=== PATIENT | male | born 1980 | race African-American/Black ===

== ENCOUNTER 2020-07-12 15:07 | Outpatient (REF) | payer MEDICAID, SELFPAY | END 2020-07-12 15:08 | disposition home or self-care (01) | LOC: HO.LAB 15:07 | PROVIDERS: Visit Provider Internal Medicine | DX: Z20.822 Contact with and (suspected) exposure to COVID-19 (principal) | CPT/HCPCS: 36415; C9803; U0003; U0005 ==

== ENCOUNTER 2022-06-11 09:42 | Emergency (ER) | payer MEDICAID, SELFPAY ==
[2022-06-11 10:15] VITALS: BP 135/74; PULSE 63; RESP 18; TEMP 37.2; O2SAT 99; BMI 25.0
[2022-06-11 10:48] LABS: Appearance Urine Clear; Color Urine Yellow; Glucose Urine UA Negative (Negative); Leukocyte Esterase Urine Trace (Negative); Nitrite Urine Negative (Negative); PH 6.5 (5.0-9.0); Specific Gravity - Urine 1.025 (1.005-1.025); UMIC TRIGGER UACC YES; Urine Blood Negative (Negative); Urine Ketones Trace mg/dL (Negative); Urine Protein Trace mg/dL (Neg-Trace)
[2022-06-11 10:53] LABS: Bacteria Urine None Seen (None Seen); Hyaline Casts Urine 0-2 /LPF (0-2); RBC Urine 0-2 /HPF (0-2); Squamous Epithelial Cell Urine 0-2 /HPF (0-2); UACC Culture Trigger YES
[2022-06-11 12:20] LABS: CT PCR DETECTED (Not Detect.)
[2022-06-11 12:21] LABS: NG PCR NOT DETECTED (Not Detect.)
[2022-06-11 12:40] VITALS: BP 154/96; PULSE 63; RESP 16; O2SAT 99
--- NOTE | 2022-06-11 12:44 | ED.MALEGU ---
HPI - Male Genitourinary General Chief complaint: Urogenital-Male Stated complaint: STD testing Time Seen by Provider: 06/11/22 12:40 Source: patient Mode of arrival: ambulatory Limitations: no limitations History of Present Illness HPI Narrative: Patient is a 41-year-old male who presents to the emergency department for STI testing. He reports penile itching during urination. Denies burning sensation, pain. Denies any penile discharge or lesions. Declines to have genitourinary examination today. He denies fevers, chills. He does endorse recent sexual contact, no reported exposure. Denies any scrotal pain or swelling. Related Data Previous Rx's Medication Instructions Recorded doxycycline hyclate 100 mg capsule 100 mg PO BID #14 caps 06/11/22 Allergies Allergy/AdvReac Type Severity Reaction Status Date / Time No Known Allergies Allergy Unverified 02/24/20 18:12 Review of Systems Review of Systems: Genitourinary: As noted in HPI Yes all other systems are reviewed and are negative [facility] Past Medical History Attestation statement: The following information was validated with the patient. Source: old records reviewed Social History Social History Advance Directives: No Advance Directives Information Provided: No Physical Exam Vital Signs: Vital Signs: Last Vital Signs Temp 98.9 F 06/11/22 10:15 Pulse 63 06/11/22 12:40 Resp 16 06/11/22 12:40 BP 154/96 H 06/11/22 12:40 Pulse Ox 99 06/11/22 12:40 O2 Del Method 06/11/22 12:40 BMI result Body Mass Index 25.0 Appearance: Alert.?Oriented to person, place and time. No acute distress.?Normal affect. Neck: Normal inspection.? Neck supple.?? CVS: Heart sounds normal. Normal heart rate and rhythm.? Pulses normal.?? Respiratory: No respiratory distress.? Lung sounds clear to auscultation bilaterally?? Abdomen: Soft and non-tender. Skin: Skin warm and dry.? Normal skin color.? ? Neuro: Moves all extremities spontaneously. Sensation intact bilaterally. No focal neuro deficits. Ambulates with normal steady gait. Medications Administered Discontinued Medications Generic Name Dose Route Start Last Admin Trade Name Freq PRN Reason Stop Dose Admin Ceftriaxone Sodium 500 mg/ 0 mg 06/11/22 12:45 06/11/22 13:13 Lidocaine HCl 1 ml IM 06/11/22 12:46 1 kit ONCE ONE Administration Medical Decision Making Medical Decision Making [facility] Narrative: Patient is a 41-year-old male with no reported past medical history presenting to the emergency department for evaluation of penile itching during urination. Review of labs obtained from triage, urinalysis without evidence of urinary tract infection. Chlamydia testing today is positive. Patient made aware of these results. Received ceftriaxone IM injection in the emergency department, and prescription for doxycycline was sent to patient's pharmacy. Patient declines to have genitourinary physical examination at the time of this visit. We discussed the possibility of other sexually transmitted infections, potential for lesions that may be associated with things such as genital herpes or syphilis. He adamantly declines any presence of lesions or wounds. Advised that he may follow-up with his primary care provider for any persistent symptoms, and may return to emergency department with any new or worsening symptoms or concerns. All questions answered. He is stable for discharge. Differential Diagnosis Differential Diagnoses: The differential diagnosis associated with the presentation includes (UTI, chlamydia, gonorrhea, HSV, syphilis) Lab Data [facility] Lab Attestation statement: I reviewed the patient's lab results. Labs: Lab Results 06/11/22 06/11/22 Range/Units 10:40 10:40 Urine Color Yellow Urine Appearance Clear Urine pH 6.5 (5.0-9.0) Ur Specific [place] 1.025 (1.005-1.025) Urine Protein Trace (Neg-Trace) mg/dL Urine Glucose (UA) Negative (Negative) mg/dL Urine Ketones Trace (Negative) mg/dL Urine Blood Negative (Negative) Urine Nitrite Negative (Negative) Ur Leukocyte Esterase Trace H (Negative) Urine RBC 0-2 (0-2) /HPF Urine WBC 11-20 H (0-5) /HPF Ur Squamous Epith Cells 0-2 (0-2) /HPF Urine Bacteria None Seen (None Seen) Hyaline Casts 0-2 (0-2) /LPF Chlam trachomat DNA PCR DETECTED A (Not Detect.) N.gonorrhoeae DNA (PCR) NOT DETECTED (Not Detect.) Prescription Management I considered prescription management with: Antibiotic (Prescription for doxycycline sent to patient's pharmacy) Discharge Plan Discharge Clinical Impression: Chlamydia Patient Disposition: Home, Self-Care Instructions: Chlamydia (ED), Safe Sex Practices (ED) Additional Instructions: You should refrain from any sexual intercourse for the next week. A prescription for doxycycline was sent to your pharmacy, please complete this entire course. Any sexual partners you have had in the last 3 months should be made aware of your positive testing for chlamydia, so that they may also be tested and treated appropriately if necessary. This is to help reduce the spread of chlamydia. Follow-up with your primary care provider as needed. Return to emergency department any new or worsening symptoms or concerns. Prescriptions: New doxycycline hyclate 100 mg capsule 100 mg PO BID Qty: 14 0RF Referrals: Physician,None [Primary Care Provider] - Interventions: ED Discharge Assessment Last Done: 06/11/22 13:15 Discharge Date/Time: 06/11/22 13:16
[2022-06-11] MEDS: cefTRIAXone sodium 500 MG, Lidocaine HCl 1 % MPF 1 ML IM (13:13)
--- NOTE | 2022-06-11 13:15 | PC.NURSE ---
pt a&ox3, denied pain at this time, medicated per order, pt discharged after medication given
== END 2022-06-11 13:16 | disposition home or self-care (01) ==
PROVIDERS: Emergency Provider Emergency Medicine
DX: A56.8 Sexually transmitted chlamydial infection of other sites (principal)
CPT/HCPCS: 81001; 87086; 87491; 87591; 96372; 99283; 99284; J0696

== ENCOUNTER 2022-07-02 09:31 | Emergency (ER) | payer OTHER, SELFPAY ==
[2022-07-02 09:41] VITALS: BP 153/97; PULSE 66; RESP 18; TEMP 36.6; O2SAT 100; BMI 25.8
--- NOTE | 2022-07-02 10:22 | MHC.EDTECH ---
labs drawn. urine collected, sent to lab.
[2022-07-02 10:28] LABS: MANUAL DIFF FLAG NO
[2022-07-02 10:29] LABS: Basophils Percent Auto 0.5 % (0-2); Eosinophils Absolute Auto 0.1 X10*3/uL (0.0-0.4); Hematocrit 42.7 % (42.0-52.0); Hemoglobin 13.6 g/dl (14.0-18.0); Imm Gran Abs Auto 0.03 X10*3/uL (0.00-0.03); Imm Gran Pct Auto 0.3 % (0.0-0.4); Lymphocytes Absolute Auto 1.6 X10*3/uL (1.2-4.9); Lymphocytes Percent Auto 18.1 % (20-40); Mean Corpuscular HGB Conc 31.9 g/dl (31.0-36.0); Mean Platelet Volume 10.3 fL (9.4-12.4); Monocytes Absolute Auto 0.8 X10*3/uL (0.1-1.2); Monocytes Percent Auto 8.9 % (2-11); Neutrophils Absolute Auto 6.3 x10*3/uL (2.0-8.3); Neutrophils Percent Auto 71.2 % (45-73); Platelet Count 257 X10*3/uL (160-400); Red Blood Count 4.85 X10*6/uL (4.60-5.80); Red Cell Distribution Width 13.3 % (11.0-16.0); White Blood Count 8.8 X10*3/uL (4.8-10.8)
[2022-07-02 10:34] LABS: Appearance Urine Clear; Color Urine Yellow; Glucose Urine UA Negative (Negative); Leukocyte Esterase Urine Negative (Negative); Nitrite Urine Negative (Negative); Urine Blood Negative (Negative); Urine Ketones Trace mg/dL (Negative); Urine Protein Negative (Neg-Trace)
--- NOTE | 2022-07-02 10:49 | ED.MALEGU ---
HPI - Male Genitourinary General Chief complaint: Urogenital-Male Stated complaint: STD test Time Seen by Provider: 07/02/22 09:47 Source: patient Mode of arrival: ambulatory Limitations: no limitations History of Present Illness HPI Narrative: 41-year-old male who is Albanian-speaking presenting to the ER with complaints of a possible chlamydia infection. patient reports that he was seen here on 06/11/2022 and treated for gonorrhea with doxycycline b.i.d. for 7 days. Although reports his symptoms improve although never completely resolved. He reports that his girlfriend is currently 5 months although he has not had any intercourse with her in 5 months. He reports that a month ago he went to [place] and slept with another female and then he came back here and had the symptoms and was seen here and was treated for chlamydia. Reports that he did not have any intercourse with a female that he believes he sustained a chlamydia from. He did not have any intercourse with his girlfriend who is until 5 days after he completed the treatment for chlamydia. Although he reports that he believes he is still infected with chlamydia. He denies any fevers, chills, chest pain or shortness of breath, Nausea/vomiting, abdominal pain, flank pain, back pain, rashes, penile lesions or discharge, scrotal pain or swelling, diarrhea constipation or any other symptoms complaints or concerns at this time. Complaint: possible STD exposure Onset (ago): day(s) ( today) Duration: constant Quality: burning Relieving factors: none Exacerbating factors: urination Context: new sexual partner and known STD exposure Associated symptoms: Reports denies other symptoms Related Data Sexually active: Yes Previous Rx's Medication Instructions Recorded doxycycline hyclate 100 mg capsule 100 mg PO BID #14 caps 06/11/22 doxycycline monohydrate 100 mg 100 mg PO BID 10 days #20 tabs 07/02/22 tablet Allergies Allergy/AdvReac Type Severity Reaction Status Date / Time No Known Allergies Allergy Verified 07/02/22 09:43 Review of Systems Review of Systems: Constitutional : No Weight loss, No Fever, No Chills, No Night Sweats, No Fatigue, NoMalaise ENT/Mouth: No ear pain, No sore throat, No Difficulty swallowing Cardiovascular : No Chest Pain, No SOB, No Dyspnea on Exertion, No Orthopnea, NoEdema, No Palpitations Respiratory : No Cough, No Sputum, No Wheezing, No Dyspnea Gastrointestinal : No Nausea, No Vomiting, No Diarrhea, No abdominal Pain, No Hematochezia, No Melena Genitourinary : No testicular pain, No irregular bleeding, + Dysuria, No Urinary Frequency, No Hematuria,No Urinary Incontinence, No Urgency, No Flank Pain Musculoskeletal : No joint pain, No Myalgias, No Joint Swelling Skin : No Skin Lesions, No rash Neuro : No Weakness, No Numbness, No Paresthesias, No Loss of Consciousness, NoDizziness, No Headache Psych : No Social Issues, Heme/Lymph: No Bruising, No Bleeding,No Lymphadenopathy Endocrine : No Polyuria, No Polydipsia, No Temperature Intolerance PATIENT DENIES ANY THOUGHTS OF STDS Yes all other systems are reviewed and are negative [facility] Past Medical History Attestation statement: The following information was validated with the patient. Source: old records reviewed and nursing notes reviewed Social History Social History Advance Directives: No Advance Directives Information Provided: No Physical Exam Vital Signs: Vital Signs: Last Vital Signs Temp 97.9 F 07/02/22 09:41 Pulse 66 07/02/22 09:41 Resp 18 07/02/22 09:41 BP 153/97 H 07/02/22 09:41 Pulse Ox 100 07/02/22 09:41 O2 Del Method 07/02/22 09:41 BMI result Body Mass Index 25.8 vital signs have been reviewed as normal and appeared to be correct. Blood pressure normal. Heart rate normal. Respiration rate normal. Temperature normal. Oxygen saturation normal. Appearance: Alert. Oriented X3. No acute distress. Head: Normal external exam. Normocephalic. Atraumatic. Eyes: PERRLA. EOMI. Conjunctiva and sclera normal. Eyelids normal. ENT: Pharynx normal. Uvula midline. Moist mucous membranes. Neck: Normal inspection. Neck supple. FROM. No adenopathy. No meningeal signs. CVS: Normal heart rate and rhythm. Heart sound normal. No murmurs noted. Pulses normal throughout. Respiratory: No respiratory distress. Painless inspiration. Breath sounds normal. No wheezes/rales/rhonchi noted. Chest nontender. No accessory muscle usage noted or decreased air movement noted. Abdomen: Soft and nontender. Bowel sounds normal in all 4 quadrants. No distention noted. No organomegaly noted. No visible injury noted. Back: No CVA tenderness. Full range of motion noted. Skin: Skin warm and dry. Normal skin color. Normal skin turgor. No rashes/lesions/lacerations noted. Extremities: Extremities exhibit normal range of motion. Extremities nontender. Neuro: Oriented X 3. No motor deficit. No sensory deficit. Reflexes normal. Course Course Course Narrative: patient concerned for STD. On exam he does not have any abdominal tenderness, flank pain or CVA tenderness. He denies any penile discharge, scrotal pain or swelling or lesions or rashes to the penis or rectal area therefore exam deferred. I obtain labs in all his labs were normal. UA revealed ketones otherwise no evidence of UTI. Patient pending for syphilis, gonorrhea chlamydia. Patient requesting repeat treatment for chlamydia. I explained to him that I can give him the antibiotics although if he is positive he will have to have his significant other treated as well she will have to come in for further evaluation treatment. I explained to him we will call him in 3-5 days if he has any positive results and to return if any new or worsening symptoms and follow-up with primary care provider. Patient understands agrees with this plan. Medical Decision Making Lab Data [facility] Lab Attestation statement: I reviewed the patient's lab results. 07/02/22 10:19 07/02/22 10:19 Labs: Lab Results 07/02/22 07/02/22 07/02/22 Range/Units 10:19 10:19 10:19 WBC 8.8 (4.8-10.8) X10*3/uL RBC 4.85 (4.60-5.80) X10*6/uL Hgb 13.6 L (14.0-18.0) g/dl Hct 42.7 (42.0-52.0) % MCV 88.0 (80.0-98.0) fL MCH 28.0 (27.0-33.0) pg MCHC 31.9 (31.0-36.0) g/dl RDW 13.3 (11.0-16.0) % Plt Count 257 (160-400) X10*3/uL MPV 10.3 (9.4-12.4) fL Immature Gran % (Auto) 0.3 (0.0-0.4) % Neut % (Auto) 71.2 (45-73) % Lymph % (Auto) 18.1 L (20-40) % [place] % (Auto) 8.9 (2-11) % Eos % (Auto) 1.0 (0-4) % Baso % (Auto) 0.5 (0-2) % Lymph # (Auto) 1.6 (1.2-4.9) X10*3/uL [place] # (Auto) 0.8 (0.1-1.2) X10*3/uL Eos # (Auto) 0.1 (0.0-0.4) X10*3/uL Baso # (Auto) 0.0 (0.0-0.2) X10*3/uL Abs Immat Gran (auto) 0.03 (0.00-0.03) X10*3/uL Absolute Neuts (auto) 6.3 (2.0-8.3) x10*3/uL Absolute Nucleated RBC 0.000 (0.0-0.012) X10*3/uL Nucleated RBC % (auto) 0.0 (0.0-0.2) /100WBC Sodium 137 (135-145) mmol/L Potassium 4.4 (3.3-5.1) mmol/L Chloride 103 (96-108) mmol/L Carbon Dioxide 25 (22-29) mmol/L Anion Gap 13 (12-20) BUN 13 (9-16) mg/dL Creatinine 1.27 (0.5-1.4) mg/dL Estim Creat Clear Calc 73.0 Estimated GFR > 60 Random Glucose 98 (60-115) mg/dL Calcium 9.8 (8.4-10.2) mg/dL Magnesium 1.9 (1.6-2.6) mg/dL Total Bilirubin 0.5 (0.0-1.0) mg/dL AST 29 (5-37) U/L ALT 40 (0-40) U/L Alkaline Phosphatase 85 (39-117) U/L Total Protein 7.7 (6.5-8.0) g/dL Albumin 4.8 (3.5-5.0) g/dL Urine Color Yellow Urine Appearance Clear Urine pH 7.0 (5.0-9.0) Ur Specific [place] 1.020 (1.005-1.025) Urine Protein Negative (Neg-Trace) mg/dL Urine Glucose (UA) Negative (Negative) mg/dL Urine Ketones Trace (Negative) mg/dL Urine Blood Negative (Negative) Urine Nitrite Negative (Negative) Ur Leukocyte Esterase Negative (Negative) Discharge Plan Discharge Clinical Impression: Screen for STD (sexually transmitted disease) Patient Disposition: Home, Self-Care Instructions: Sexually Transmitted Diseases (ED) Additional Instructions: You have pending lab results if any are positive you will be contacted within 3-5 days. Return if any new or worsening symptoms. Tiene resultados de laboratorio pendientes, si alguno es positivo, lo contactaremos dentro de 3 a 5 d?as. Regrese si hay s?ntomas nuevos o que empeoran. Prescriptions: New doxycycline monohydrate 100 mg tablet 100 mg PO BID 10 Days Qty: 20 0RF No Action doxycycline hyclate 100 mg capsule 100 mg PO BID Qty: 14 0RF Referrals: Physician,None [Primary Care Provider] - (your pcp as needed) Print Language: Albanian
[2022-07-02 10:53] LABS: Alanine Aminotransferase 40 U/L (0-40); Albumin Level 4.8 g/dL (3.5-5.0); Alkaline Phosphatase 85 U/L (39-117); Anion Gap 13 (12-20); Aspartate Amino Transferase 29 U/L (5-37); Bilirubin Total 0.5 mg/dL (0.0-1.0); Blood Urea Nitrogen 13 mg/dL (9-16); Calcium 9.8 mg/dL (8.4-10.2); Carbon Dioxide 25 mmol/L (22-29); Chloride 103 mmol/L (96-108); Estimated Glomerular Filt Rate > 60; Glucose Random 98 mg/dL (60-115); Magnesium 1.9 mg/dL (1.6-2.6); Potassium 4.4 mmol/L (3.3-5.1); Sodium 137 mmol/L (135-145); Total Protein 7.7 g/dL (6.5-8.0)
[2022-07-02 12:51] LABS: CT PCR NOT DETECTED (Not Detect.); NG PCR NOT DETECTED (Not Detect.)
[2022-07-03 07:44] LABS: Syphilis Screen Nonreactive (Nonreactive)
== END 2022-07-02 11:30 | disposition home or self-care (01) ==
PROVIDERS: Physician Assistant Medical; Emergency Provider Emergency Medicine
DX: Z20.2 Contact with and (suspected) exposure to infections with a predominantly sexual mode of transmission (principal); Z79.899 Other long term (current) drug therapy
CPT/HCPCS: 0353U; 36415; 80053; 81003; 83735; 85025; 86780; 99283

== ENCOUNTER 2023-04-11 10:24 | Emergency (ER) | payer MEDICAID, SELFPAY ==
--- NOTE | 2023-04-11 | ECG_ITS ---
Test Reason : HTN Blood Pressure : / mmHG Vent. Rate : 062 BPM Atrial Rate : 062 BPM P-R Int : 124 ms QRS Dur : 094 ms QT Int : 380 ms P-R-T Axes : 010 071 055 degrees QTc Int : 385 ms Normal sinus rhythm Nonspecific ST abnormality Inferior leads Abnormal ECG No previous ECGs available Referred By: Generic ED Physician Electronically Signed By:PASTOR DIAZ MD
[2023-04-11 10:41] VITALS: BP 169/100; PULSE 67; RESP 18; TEMP 37; O2SAT 99; BMI 27.0
--- NOTE | 2023-04-11 10:57 | ED.GENADULT ---
HPI - General Adult General Chief complaint: General Medical Stated complaint: High Blood Pressure Time Seen by Provider: 04/11/23 10:49 Source: patient, RN notes reviewed and old records reviewed Mode of arrival: ambulatory History of Present Illness HPI narrative: 42-year-old male with no known past medical history presented to the ED complaining of lightheadedness and diaphoresis noted this morning with elevated BP at home 174/ 117. Denies known history of hypertension, states has not seen doctor in over 10 years. Denies headache, vision change/loss, chest pain/shortness of breath, weakness, paresthesias. Denies taking anticoagulation. Related Data Previous Rx's Medication Instructions Recorded doxycycline hyclate 100 mg capsule 100 mg PO BID #14 caps 06/11/22 doxycycline monohydrate 100 mg 100 mg PO BID 10 days #20 tabs 07/02/22 tablet amlodipine 2.5 mg tablet 2.5 mg PO DAILY 30 days #30 tabs 04/11/23 Allergies Allergy/AdvReac Type Severity Reaction Status Date / Time No Known Allergies Allergy Verified 04/11/23 10:45 Review of Systems Review of Systems: Constitutional: No Fever, No Chills, No Fatigue, No Malaise ENT/Mouth: No Hearing loss, No Ear Pain, No Nasal Congestion, No Sinus Pain, No Hoarseness, No sore throat, No Rhinorrhea, No Swallowing Difficulty Eyes: No Eye Pain, No Swelling, No Vision Changes Cardiovascular: No Chest Pain, No SOB, No Edema, No Palpitations Respiratory: No Cough, No Sputum, No Dyspnea Gastrointestinal: No Nausea, No Vomiting, No Diarrhea, No Constipation, No Abdominal pain Genitourinary: No Dysuria, No Urinary Frequency, No Hematuria, No Flank Pain Musculoskeletal: No joint pain, No Myalgias, No Joint Swelling Skin: No Skin Lesions, No rash Neuro: No Weakness, No Numbness, No Paresthesias, No Loss of Consciousness, + lightheaded, No Headache Yes all other systems are reviewed and are negative Constitutional: Constitutional: Reports as per HPI Neurologic: Denies Abnormal speech present [facility] Past Medical History Attestation statement: The following information was validated with the patient. Source: old records reviewed Social History Social History Advance Directives: No Advance Directives Information Provided: Yes Physical Exam ED Vital Signs: Vital Signs - 24 hr 04/11/23 10:41 04/11/23 11:44 04/11/23 11:44 Temperature 98.6 F Pulse Rate 67 63 65 Respiratory Rate 18 Blood Pressure 169/100 H 149/84 H 154/88 H Pulse Oximetry 99 Oxygen Delivery Method Room Air 04/11/23 11:46 04/11/23 13:28 04/11/23 15:59 Temperature Pulse Rate 68 70 70 Respiratory Rate 20 20 Blood Pressure 153/97 H 148/91 H 148/94 H Pulse Oximetry 99 99 Oxygen Delivery Method Room Air Room Air BMI result Body Mass Index 27.0 Const General: cooperative, healthy appearing and no acute distress Orientation/consciousness: patient oriented x3 Limitations: no limitations HENMT Head: Yes normal to inspection and Yes atraumatic Ears: hearing grossly normal bilaterally General nose exam: Normal external nose present Face and sinus: Yes normal facial exam Eyes General: appearance normal, both eyes and all related structures EOM: EOMs intact bilaterally Neck Neck: Yes normal visual inspection and Yes no meningeal signs Resp Effort & Inspection: normal respiratory effort and no respiratory distress Auscultation: clear to auscultation bilaterally Cardio Rate: regular rate Heart sounds: S1 normal heart sound present and S2 normal heart sound present GI Inspection: Yes normal to inspection Palpation (GI): Soft to palpation, nontender, no guarding and not rigid General: Yes no CVA tenderness Back/Spine/Pelvis Back: no CVA tenderness Skin Rashes: no rashes Wounds: no wounds Neuro General: patient oriented x3, gait normal, tone normal, moves all extremities, no meningeal signs, no focal motor deficits and CN's II-XI intact bilaterally Cranial nerves: Yes CN's II-XII intact bilaterally Cognition (Neuro): normal cognition Speech: No Abnormal speech present Gait exam (Neuro): Normal gait present Motor exam (neuro): 5/5 motor strength present throughout Extrem General: Yes normal to inspection and Yes capillary refill normal Course Course Course Narrative: -1243--leukocytosis of 15.2. Labs otherwise reassuring. Initial troponin 4.6 >will obtain 3hr repeat -Blood pressure is down trending most recently 153/97 -1353--repeat blood pressure 148/91 without intervention -1430--repeat troponin 12.5 > will consult Cardiology due to delta. Will obtain additional 3 hour repeat -case discussed with Cardiology, Dr. Grullon who recommended additional serial troponin in initiating metoprolol tartrate 25 mg b.i.d. > will give 1st dose in the ED -1627--tox screen positive for cocaine and marijuana > re-consulted Dr. Grullon who recommended against Metoprolol and initiating Amlodipine 2.5 mg. Cocaine likely cause -1630--ED care transferred to [facility] pending repeat troponin @1700 Medications Administered Discontinued Medications Generic Name Dose Route Start Last Admin Trade Name Casandra PRN Reason Stop Dose Admin Metoprolol Tartrate 25 mg 04/11/23 15:14 04/11/23 15:44 Metoprolol Tartrate 25 Mg Tablet PO 04/11/23 15:15 25 mg ONCE ONE Administration Protocol Medical Decision Making Medical Decision Making [facility] Narrative: 42-year-old male with no known past medical history presented to the ED complaining of lightheadedness and diaphoresis noted this morning with elevated BP at home 174/ 117. On exam initially hypertensive 169/100, NAD, nontoxic appearing, no focal neuro deficits. Denies CP and headache. Concern for uncontrolled hypertension. Rule out hypertensive urgency/emergency and metabolic abnormalities. Lower suspicion for SAH/ICH Plan: EKG, labs, orthostatics, continue to monitor BP Please refer to course for remaining clinical decision making, interpretation of labs/imaging results, and discussions with consultants and/or family members. Differential Diagnosis Differential Diagnoses: The differential diagnosis associated with the presentation includes As above Admission/Observation Consideration of admission/observation: Escalation of care including admission/observation considered Consult Healthcare Provider Management of the patient was discussed with: Truck Engine Technician (Cardiology) Lab Data [facility] Lab Attestation statement: I reviewed the patient's lab results. 04/11/23 11:18 04/11/23 11:18 Labs: Lab Results 04/11/23 04/11/23 04/11/23 Range/Units 11:18 11:50 13:56 WBC 15.2 H (4.8-10.8) X10*3/uL RBC 5.09 (4.60-5.80) X10*6/uL Hgb 14.4 (14.0-18.0) g/dl Hct 44.4 (42.0-52.0) % MCV 87.2 (80.0-98.0) fL MCH 28.3 (27.0-33.0) pg MCHC 32.4 (31.0-36.0) g/dl RDW 13.0 (11.0-16.0) % Plt Count 251 (160-400) X10*3/uL MPV 10.7 (9.4-12.4) fL Immature Gran % (Auto) 0.4 (0.0-0.4) % Neut % (Auto) 86.0 H (45-73) % Lymph % (Auto) 6.8 L (20-40) % [place] % (Auto) 6.1 (2-11) % Eos % (Auto) 0.2 (0-4) % Baso % (Auto) 0.5 (0-2) % Lymph # (Auto) 1.0 L (1.2-4.9) X10*3/uL [place] # (Auto) 0.9 (0.1-1.2) X10*3/uL Eos # (Auto) 0.0 (0.0-0.4) X10*3/uL Baso # (Auto) 0.1 (0.0-0.2) X10*3/uL Abs Immat Gran (auto) 0.06 H (0.00-0.03) X10*3/uL Absolute Neuts (auto) 13.1 H (2.0-8.3) x10*3/uL Absolute Nucleated RBC 0.000 (0.0-0.012) X10*3/uL Nucleated RBC % (auto) 0.0 (0.0-0.2) /100WBC Sodium 138 (135-145) mmol/L Potassium 4.2 (3.3-5.1) mmol/L Chloride 104 (96-108) mmol/L Carbon Dioxide 25 (22-29) mmol/L Anion Gap 13 (12-20) BUN 14 (9-16) mg/dL Creatinine 1.17 (0.5-1.4) mg/dL Estim Creat Clear Calc 75.7 Estimated GFR > 60 Random Glucose 105 (60-115) mg/dL Calcium 9.5 (8.4-10.2) mg/dL Magnesium 2.1 (1.6-2.6) mg/dL Total Bilirubin 0.3 (0.0-1.0) mg/dL Direct Bilirubin 0.1 (0.0-0.5) mg/dL AST 23 (5-37) U/L ALT 20 (0-40) U/L Alkaline Phosphatase 89 (39-117) U/L Troponin I High Sens 4.6 12.5 D (<3.5-35.0) ng/L Total Protein 7.9 (6.5-8.0) g/dL Albumin 4.6 (3.5-5.0) g/dL Urine Color Yellow Urine Appearance Clear Urine pH 6.5 (5.0-9.0) Ur Specific [place] <= 1.005 (1.005-1.025) Urine Protein Negative (Neg-Trace) mg/dL Urine Glucose (UA) Negative (Negative) mg/dL Urine Ketones Negative (Negative) mg/dL Urine Blood Negative (Negative) Urine Nitrite Negative (Negative) Ur Leukocyte Esterase Negative (Negative) Urine Opiates Screen Not Detected (Not Detect) Urine Fentanyl Screen Not Detected (Not Detect) Ur Barbiturates Screen Not Detected (Not Detect) Ur Phencyclidine Scrn Not Detected (Not Detect) Ur Amphetamines Screen Not Detected (Not Detect) U Benzodiazepines Scrn Not Detected (Not Detect) Urine Cocaine Screen POSITIVE H (Not Detect) U Marijuana (THC) Screen POSITIVE H (Not Detect) Independent Interpretation I performed an independent interpretation of an: EKG (My interpretation EKG normal sinus rhythm rate 62. [place] interval 124. QTC 385. No STEMI or previous EKGs to compare ) Radiology Impression Discussion of test interpretation with radiology: I have reviewed the radiologist's reading. External Record Review External record reviewed: Inpatient record, Office record, Outpatient record, Prior outpatient labs, Prior outpatient radiology, Primary care record and Outside ED record Tests considered The following testing was considered but not selected: As above Social Determinants Patient?s care significantly limited by Social Determinants of Health including: Problems related to primary support group Discharge Plan Discharge Clinical Impression: Hypertension Patient Disposition: Home, Self-Care Instructions: Hypertension (ED) Additional Instructions: YOU NEED TO ESTABLISH CARE WITH A PCP Start taking amlodipine daily as prescribed. You should follow-up with cardiology Monitor your blood pressure at home closely If blood pressure is elevated greater than 160/110 or low less than 100/60 please return to the ED If you develop chest pain/shortness of breath, headache or dizziness return to the ED NECESITA ESTABLECER ATENCI?N CON UN PCP Empiece a brian amlodipino diariamente seg?n lo prescrito. Debes hacer seguimiento con cardiolog?a. Controle de cerca ghosh presi?n arterial en casa Si la presi?n arterial es elevada a m?s de 160/110 o baja a menos de 100/60, regrese al servicio de urgencias. Si presenta dolor en el pecho/dificultad para respirar, dolor de roseanna o mareos, regrese al servicio de urgencias. Prescriptions: New amlodipine 2.5 mg tablet 2.5 mg PO DAILY 30 Days Qty: 30 0RF No Action doxycycline hyclate 100 mg capsule 100 mg PO BID Qty: 14 0RF doxycycline monohydrate 100 mg tablet 100 mg PO BID 10 Days Qty: 20 0RF Referrals: [facility] [place] [facility] [Provider Group] [facility] [place] [facility] [Provider Group] Physician,None [Primary Care Provider] - Print Language: Jamaican
[2023-04-11 11:22] LABS: MANUAL DIFF FLAG NO
[2023-04-11 11:23] LABS: Basophils Absolute Auto 0.1 X10*3/uL (0.0-0.2); Basophils Percent Auto 0.5 % (0-2); Eosinophils Percent Auto 0.2 % (0-4); Hematocrit 44.4 % (42.0-52.0); Hemoglobin 14.4 g/dl (14.0-18.0); Imm Gran Abs Auto 0.06 X10*3/uL (0.00-0.03); Imm Gran Pct Auto 0.4 % (0.0-0.4); Lymphocytes Percent Auto 6.8 % (20-40); Mean Corpuscular HGB Conc 32.4 g/dl (31.0-36.0); Mean Corpuscular Hemoglobin 28.3 pg (27.0-33.0); Mean Corpuscular Volume 87.2 fL (80.0-98.0); Mean Platelet Volume 10.7 fL (9.4-12.4); Monocytes Absolute Auto 0.9 X10*3/uL (0.1-1.2); Monocytes Percent Auto 6.1 % (2-11); Neutrophils Absolute Auto 13.1 x10*3/uL (2.0-8.3); Platelet Count 251 X10*3/uL (160-400); Red Blood Count 5.09 X10*6/uL (4.60-5.80); White Blood Count 15.2 X10*3/uL (4.8-10.8)
[2023-04-11 11:39] LABS: Alanine Aminotransferase 20 U/L (0-40); Albumin Level 4.6 g/dL (3.5-5.0); Alkaline Phosphatase 89 U/L (39-117); Anion Gap 13 (12-20); Aspartate Amino Transferase 23 U/L (5-37); Bilirubin Direct 0.1 mg/dL (0.0-0.5); Bilirubin Total 0.3 mg/dL (0.0-1.0); Blood Urea Nitrogen 14 mg/dL (9-16); Calcium 9.5 mg/dL (8.4-10.2); Carbon Dioxide 25 mmol/L (22-29); Chloride 104 mmol/L (96-108); Creatinine Clr Calc Pharmacy 75.7; Estimated Glomerular Filt Rate > 60; Glucose Random 105 mg/dL (60-115); Magnesium 2.1 mg/dL (1.6-2.6); Potassium 4.2 mmol/L (3.3-5.1); Sodium 138 mmol/L (135-145); Total Protein 7.9 g/dL (6.5-8.0)
[2023-04-11 11:44] VITALS: BP 149/84; BP 154/88; PULSE 63; PULSE 65
[2023-04-11 11:45] LABS: Troponin-I High Sensitivity 4.6 ng/L (<3.5-35.0)
[2023-04-11 11:46] VITALS: BP 153/97; PULSE 68
[2023-04-11 12:04] LABS: Appearance Urine Clear; Color Urine Yellow; Glucose Urine UA Negative (Negative); Leukocyte Esterase Urine Negative (Negative); Nitrite Urine Negative (Negative); PH 6.5 (5.0-9.0); Specific Gravity - Urine <= 1.005 (1.005-1.025); Urine Blood Negative (Negative); Urine Ketones Negative (Negative); Urine Protein Negative (Neg-Trace)
--- NOTE | 2023-04-11 13:01 | PC.NURSE ---
plan for repeat troponin at 1400
[2023-04-11 13:28] VITALS: BP 148/91; PULSE 70; RESP 20; O2SAT 99
[2023-04-11 14:26] LABS: Troponin-I High Sensitivity 12.5 ng/L (<3.5-35.0)
--- NOTE | 2023-04-11 15:12 | PC.NURSE ---
repeat troponin for 1700, placed on cardiac cath tech. resting quietly in room
[2023-04-11] MEDS: Metoprolol Tartrate 25 MG TABLET PO (15:44)
[2023-04-11 15:59] VITALS: BP 148/94; PULSE 70; RESP 20; O2SAT 99
[2023-04-11 16:23] LABS: Amphetamine Screen Urine Not Detected (Not Detect); Barbiturates, Urine Not Detected (Not Detect); Benzodiazepines Screen Urine Not Detected (Not Detect); Cannabinoid Screen Urine POSITIVE (Not Detect); Cocaine Screen Urine POSITIVE (Not Detect); Fentanyl, urine Not Detected (Not Detect); Opiate Screen Urine Not Detected (Not Detect); Phencyclidine Screen Urine Not Detected (Not Detect)
[2023-04-11 17:28] LABS: Troponin-I High Sensitivity 9.9 ng/L (<3.5-35.0)
== END 2023-04-11 17:50 | disposition home or self-care (01) ==
PROVIDERS: Physician Assistant; Emergency Provider Emergency Medicine
DX: R42 Dizziness and giddiness (principal); R94.31 Abnormal electrocardiogram [ECG] [EKG]; I10 Essential (primary) hypertension; Z79.899 Other long term (current) drug therapy
CPT/HCPCS: 36415; 80048; 80076; 80307; 81003; 83735; 84484; 85025; 93005; 99283; 99285

== ENCOUNTER 2023-05-08 06:58 | Emergency (ER) | payer MEDICAID, SELFPAY ==
--- NOTE | 2023-05-08 07:08 | ED.GENADULT ---
HPI - General Adult General Chief complaint: Abdominal Pain Stated complaint: std check Time Seen by Provider: 05/08/23 07:07 Source: patient Mode of arrival: ambulatory Limitations: no limitations History of Present Illness HPI narrative: Patient is a 42 year old assigned male at with no reported medical history presenting to the emergency department today requesting STI testing. Patient states that he would like to be tested for sexually transmitted diseases. When asked if the patient has any symptoms, he states that he has some intermittent abdominal pain. Patient denies any discharge from his penis. Patient denies any dizziness, lightheadedness, nausea, vomiting, fever, chills, blurry vision, double vision, loss of vision, chest pain, difficulty breathing, shortness of breath, back pain, night sweats, pain with urination, increased urinary frequency, increased urinary urgency, blood in his urine or stool, syncope or a near syncopal episode, recent trauma or falls, bowel incontinence, bladder incontinence, bowel retention, bladder retention, or any other complaints at this time. Onset (ago): day(s) (3) Location: abdomen Radiation: non-radiation Severity: mild Severity scale (1-10): 3 Quality: dull Pain Consistency: intermittent Relieving factors: none Exacerbating factors: none Associated symptoms: denies other symptoms Treatments prior to arrival: none Related Data Previous Rx's Medication Instructions Recorded doxycycline hyclate 100 mg capsule 100 mg PO BID #14 caps 06/11/22 doxycycline monohydrate 100 mg 100 mg PO BID 10 days #20 tabs 07/02/22 tablet amlodipine 2.5 mg tablet 2.5 mg PO DAILY 30 days #30 tabs 04/11/23 doxycycline hyclate 100 mg tablet 100 mg PO BID 7 days #14 tabs 05/08/23 Allergies Allergy/AdvReac Type Severity Reaction Status Date / Time No Known Allergies Allergy Verified 04/11/23 10:45 Review of Systems Constitutional: Constitutional: Reports no additional constitutional complaints, Denies chills, Denies fever(s) and Denies night sweats Eyes: Eyes: Reports no additional eye complaints, Denies blurry vision, Denies change in vision, Denies diplopia, Denies eye discharge, Denies loss of vision and Denies eye pain ENT: Denies dizziness Cardiovascular: Cardiovascular: Reports no additional cardiovascular complaints, Denies chest pain, Denies lightheadedness, Denies Loss of Consciousness and Denies dyspnea Respiratory: Respiratory: Reports no additional respiratory complaints and Denies dyspnea Gastrointestinal: Gastrointestinal: Reports no additional gastrointestinal complaints, Reports abdominal pain, Denies melena, Denies hematochezia, Denies change in bowel habits and Denies change in stool character Genitourinary: Genitourinary: Reports no additional male genitourinary complaints, Denies hematuria, Denies oliguria, Denies difficulty urinating, Denies dysuria, Denies urinary frequency, Denies urinary hesitancy, Denies urinary incontinence and Denies urinary urgency Musculoskeletal: Musculoskeletal: Reports no additional musculoskeletal complaints, Denies numbness and Denies tingling Neurologic: Denies dizziness, Denies loss of vision, Denies numbness and Denies tingling Psychiatric: Psychiatric: Reports no additional psychiatric complaints Endocrine: Endocrine: Reports no additional endocrine complaints Hematologic/Lymphatic: Hematologic/Lymphatic: Reports no additional hematologic/lymphatic complaints Allergic/Immunologic: Allergic/Immunologic: Reports no additional allergic/immunologic complaints PMFSH Past Medical History Attestation statement: The following information was validated with the patient. Source: old records reviewed and nursing notes reviewed Social History Social History Advance Directives: No Advance Directives Information Provided: No Physical Exam ED Vital Signs: Vital Signs - 24 hr 05/08/23 07:10 05/08/23 08:32 Temperature 98.6 F 97.8 F Pulse Rate 69 67 Respiratory Rate 16 16 Blood Pressure 147/89 H 156/101 H Pulse Oximetry 98 100 Oxygen Delivery Method Room Air Room Air BMI result Body Mass Index 25.0 Const General: cooperative, no acute distress, alert and awake Nutritional Appearance: well nourished Orientation/consciousness: patient oriented x3 Limitations: no limitations [facility] Head: Yes normal to inspection and Yes atraumatic Ears: hearing grossly normal bilaterally and external ears normal General nose exam: Normal external nose present, no nasal discharge noted and no epistaxis Face and sinus: Yes normal facial exam, No abrasion and No laceration Mouth: Normal oral and palatal mucosa present, no drooling and no muffled voice Eyes General: appearance normal, both eyes and all related structures Periorbital: periorbital findings normal Eyelids: Yes eyelids normal Conjunctivae: conjunctivae normal Pupils: Equal, round and reactive pupils present EOM: EOMs intact bilaterally Neck Neck: Yes normal visual inspection, Yes full ROM and Yes no lymphadenopathy Chest Chest palpation & inspection: normal inspection of the chest Resp Effort & Inspection: normal respiratory effort and able to speak in complete sentences Auscultation: clear to auscultation bilaterally Cardio Rate: regular rate Rhythm: regular rhythm GI Inspection: Yes normal to inspection Palpation (GI): Soft to palpation, not firm, nontender and no guarding Neuro General: patient oriented x3 and moves all extremities Cranial nerves: Yes Equal, round and reactive pupils present Cognition (Neuro): normal cognition Motor exam (neuro): 5/5 motor strength present throughout Sensory Exam: Normal double simultaneous stimulation for sensation Coordination: [id number] test normal Extrem General: Yes normal to inspection, Yes full ROM and Yes capillary refill normal Psych Appearance: grossly normal Mental Status: mental status grossly normal Affect: normal affect Attitude: cooperative Thought process: Normal thought process present Thought content: Normal thought content present Insight: Good insight present (Psych) Medications Administered Discontinued Medications Generic Name Dose Route Start Last Admin Trade Name Casandra PRN Reason Stop Dose Admin Ceftriaxone Sodium 500 mg/ 0 mg 05/08/23 08:21 05/08/23 08:26 Lidocaine HCl 1 ml IM 05/08/23 08:22 1 kit ONCE ONE Administration Doxycycline Monohydrate 100 mg 05/08/23 08:14 05/08/23 08:26 Doxycycline Monohydrate 100 Mg Capsule PO 05/08/23 08:15 100 mg ONCE ONE Administration Medical Decision Making Medical Decision Making [facility] Narrative: Patient is a 42 year old assigned male at with no reported medical history presenting to the emergency department today with lower abdominal pain and STI testing. Patient's physical exam was unremarkable. Patient's blood work was unremarkable. Patient's urine showed no acute process. Patient's CT/NG urine is pending. I explained my physical exam findings as well as all test results to the patient. I answered all questions asked by the patient. Patient was given IM Ceftriaxone and PO Doxy. I stressed the importance of the patient taking his medication as prescribed. I stressed the importance of the patient following up with his primary care provider. I stressed the importance of the patient returning to the emergency department immediately if his symptoms were to worsen or if he were to develop any dizziness, shortness of breath, difficulty breathing, chest pain, blurry vision, loss of vision, nausea, vomiting, abdominal pain, fever, chills, back pain, or any other complaints. Patient verbalized agreement and understanding with this treatment plan and discharge. Differential Diagnosis Differential Diagnoses: The differential diagnosis associated with the presentation includes STI testing STD testing Gonorrhea Chlamydia Admission/Observation Consideration of admission/observation: Escalation of care including admission/observation considered Patient would have been admitted to the hospital had his work up had any findings where hospital admission was appropriate and his clinical presentation warranted hospital admission. Lab Data [facility] Lab Attestation statement: I reviewed the patient's lab results. My interpretation of these studies and their corresponding values is that they are grossly normal. 05/08/23 07:35 05/08/23 07:35 Labs: Lab Results 05/08/23 05/08/23 Range/Units 07:35 07:45 WBC 6.7 (4.8-10.8) X10*3/uL RBC 5.13 (4.60-5.80) X10*6/uL Hgb 14.5 (14.0-18.0) g/dl Hct 45.1 (42.0-52.0) % MCV 87.9 (80.0-98.0) fL MCH 28.3 (27.0-33.0) pg MCHC 32.2 (31.0-36.0) g/dl RDW 13.1 (11.0-16.0) % Plt Count 232 (160-400) X10*3/uL MPV 11.1 (9.4-12.4) fL Immature Gran % (Auto) 0.3 (0.0-0.4) % Neut % (Auto) 64.0 (45-73) % Lymph % (Auto) 22.3 (20-40) % [place] % (Auto) 11.2 H (2-11) % Eos % (Auto) 1.6 (0-4) % Baso % (Auto) 0.6 (0-2) % Lymph # (Auto) 1.5 (1.2-4.9) X10*3/uL [place] # (Auto) 0.8 (0.1-1.2) X10*3/uL Eos # (Auto) 0.1 (0.0-0.4) X10*3/uL Baso # (Auto) 0.0 (0.0-0.2) X10*3/uL Abs Immat Gran (auto) 0.02 (0.00-0.03) X10*3/uL Absolute Neuts (auto) 4.3 (2.0-8.3) x10*3/uL Absolute Nucleated RBC 0.000 (0.0-0.012) X10*3/uL Nucleated RBC % (auto) 0.0 (0.0-0.2) /100WBC Sodium 135 (135-145) mmol/L Potassium 4.1 (3.3-5.1) mmol/L Chloride 102 (96-108) mmol/L Carbon Dioxide 26 (22-29) mmol/L Anion Gap 11 L (12-20) BUN 14 (9-16) mg/dL Creatinine 1.03 (0.5-1.4) mg/dL Estim Creat Clear Calc 82.9 Estimated GFR > 60 Random Glucose 137 H (60-115) mg/dL Calcium 9.4 (8.4-10.2) mg/dL Magnesium 2.3 (1.6-2.6) mg/dL Total Bilirubin 0.3 (0.0-1.0) mg/dL AST 23 (5-37) U/L ALT 31 (0-40) U/L Alkaline Phosphatase 82 (39-117) U/L Total Protein 7.8 (6.5-8.0) g/dL Albumin 4.5 (3.5-5.0) g/dL Urine Color Yellow Urine Appearance Clear Urine pH 6.0 (5.0-9.0) Ur Specific [place] 1.015 (1.005-1.025) Urine Protein Negative (Neg-Trace) mg/dL Urine Glucose (UA) Negative (Negative) mg/dL Urine Ketones Negative (Negative) mg/dL Urine Blood Negative (Negative) Urine Nitrite Negative (Negative) Ur Leukocyte Esterase Negative (Negative) Influenza Type A (PCR) NEGATIVE (Negative) Influenza Type B (PCR) NEGATIVE (Negative) RSV RNA Qual (PCR) NEGATIVE (Negative) SARS-CoV-2 RNA (RT-PCR) NEGATIVE (Negative) Prescription Management I considered prescription management with: Antibiotic (patient prescribed STI prophylactic antibiotic. ) Discharge Plan Discharge Clinical Impression: Abdominal pain, Possible exposure to STD Patient Disposition: Home, Self-Care Instructions: Sexually Transmitted Diseases (ED), Safe Sex Practices (ED), Abdominal Pain (ED) Additional Instructions: Follow up with your primary care provider. Return to the emergency department immediately if your symptoms worsen or if you develop any dizziness, shortness of breath, difficulty breathing, chest pain, blurry vision, loss of vision, nausea, vomiting, abdominal pain, fever, chills, back pain, or any other complaints. Prescriptions: New doxycycline hyclate 100 mg tablet 100 mg PO BID 7 Days Qty: 14 0RF No Action doxycycline hyclate 100 mg capsule 100 mg PO BID Qty: 14 0RF doxycycline monohydrate 100 mg tablet 100 mg PO BID 10 Days Qty: 20 0RF amlodipine 2.5 mg tablet 2.5 mg PO DAILY 30 Days Qty: 30 0RF Referrals: [facility] [place] Family Medicine [Provider Group] (Call to establish and follow up with a primary care provider. If you already have a primary care provider, please follow up with them.) [facility] [place] Primary [facility] [Provider Group] (Call to establish and follow up with a primary care provider. If you already have a primary care provider, please follow up with them.) [facility] [place] Primary Care,Nitin [Provider Group] (Call to establish and follow up with a primary care provider. If you already have a primary care provider, please follow up with them.) Stand Alone Forms: Work/School Release Interventions: ED Discharge Assessment Last Done: 05/08/23 08:36 Discharge Date/Time: 05/08/23 08:37 Print Language: Citizen [place]
[2023-05-08 07:10] VITALS: BP 147/89; PULSE 69; RESP 16; TEMP 37; O2SAT 98; BMI 25.0
[2023-05-08 07:39] LABS: MANUAL DIFF FLAG NO
[2023-05-08 07:53] LABS: Appearance Urine Clear; Color Urine Yellow; Glucose Urine UA Negative (Negative); Leukocyte Esterase Urine Negative (Negative); Nitrite Urine Negative (Negative); Specific Gravity - Urine 1.015 (1.005-1.025); Urine Blood Negative (Negative); Urine Ketones Negative (Negative); Urine Protein Negative (Neg-Trace)
[2023-05-08 07:57] LABS: Alanine Aminotransferase 31 U/L (0-40); Albumin Level 4.5 g/dL (3.5-5.0); Alkaline Phosphatase 82 U/L (39-117); Anion Gap 11 (12-20); Aspartate Amino Transferase 23 U/L (5-37); Bilirubin Total 0.3 mg/dL (0.0-1.0); Blood Urea Nitrogen 14 mg/dL (9-16); Calcium 9.4 mg/dL (8.4-10.2); Carbon Dioxide 26 mmol/L (22-29); Chloride 102 mmol/L (96-108); Creatinine Clr Calc Pharmacy 82.9; Estimated Glomerular Filt Rate > 60; Glucose Random 137 mg/dL (60-115); Magnesium 2.3 mg/dL (1.6-2.6); Potassium 4.1 mmol/L (3.3-5.1); Sodium 135 mmol/L (135-145); Total Protein 7.8 g/dL (6.5-8.0)
[2023-05-08 08:03] LABS: Basophils Percent Auto 0.6 % (0-2); Eosinophils Absolute Auto 0.1 X10*3/uL (0.0-0.4); Eosinophils Percent Auto 1.6 % (0-4); Hematocrit 45.1 % (42.0-52.0); Hemoglobin 14.5 g/dl (14.0-18.0); Imm Gran Abs Auto 0.02 X10*3/uL (0.00-0.03); Imm Gran Pct Auto 0.3 % (0.0-0.4); Lymphocytes Absolute Auto 1.5 X10*3/uL (1.2-4.9); Lymphocytes Percent Auto 22.3 % (20-40); Mean Corpuscular HGB Conc 32.2 g/dl (31.0-36.0); Mean Corpuscular Hemoglobin 28.3 pg (27.0-33.0); Mean Corpuscular Volume 87.9 fL (80.0-98.0); Mean Platelet Volume 11.1 fL (9.4-12.4); Monocytes Absolute Auto 0.8 X10*3/uL (0.1-1.2); Monocytes Percent Auto 11.2 % (2-11); Neutrophils Absolute Auto 4.3 x10*3/uL (2.0-8.3); Platelet Count 232 X10*3/uL (160-400); Red Blood Count 5.13 X10*6/uL (4.60-5.80); Red Cell Distribution Width 13.1 % (11.0-16.0); White Blood Count 6.7 X10*3/uL (4.8-10.8)
[2023-05-08 08:19] LABS: Influenza A PCR NEGATIVE (Negative); Influenza B PCR NEGATIVE (Negative); Resp Syncy Virus RNA Qual PCR NEGATIVE (Negative); SARS COV2 PCR INHOUSE NEGATIVE (Negative)
[2023-05-08] MEDS: Doxycycline Monohydrate 100 MG CAPSULE PO (08:26)
[2023-05-08] MEDS: cefTRIAXone sodium 500 MG, Lidocaine HCl 1 % MPF 1 ML IM (08:26)
[2023-05-08 08:32] VITALS: BP 156/101; PULSE 67; RESP 16; TEMP 36.6; O2SAT 100
[2023-05-08 15:01] LABS: CT PCR NOT DETECTED (Not Detect.); NG PCR NOT DETECTED (Not Detect.)
== END 2023-05-08 08:37 | disposition home or self-care (01) ==
PROVIDERS: Physician Assistant Medical; Emergency Provider Emergency Medicine Emergency Medical Services
DX: R10.9 Unspecified abdominal pain (principal); Z20.2 Contact with and (suspected) exposure to infections with a predominantly sexual mode of transmission; Z20.822 Contact with and (suspected) exposure to COVID-19; Z20.828 Contact with and (suspected) exposure to other viral communicable diseases; Z79.899 Other long term (current) drug therapy
CPT/HCPCS: 0241U; 0353U; 80053; 81003; 83735; 85025; 96372; 99284; J0696

== ENCOUNTER 2024-03-17 03:10 | Emergency (ER) | payer MEDICAID, SELFPAY ==
[2024-03-17 03:11] VITALS: BP 158/103; PULSE 66; RESP 18; TEMP 36.6; O2SAT 96; BMI 25.8
[2024-03-17 06:46] VITALS: BP 176/117; PULSE 61; RESP 16; TEMP 37; O2SAT 99
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
[2024-03-17] MEDS: Fluorescein Sodium STRIP 1 STRIP EYE-LEFT (07:34)
[2024-03-17] MEDS: Tetracaine HCl/PF 0.5% Oph Sol 4 ML DROPS 1 DROP EYE-BOTH (07:35)
[2024-03-17 08:08] VITALS: BP 176/117; PULSE 61; RESP 16; TEMP 37; O2SAT 99
== END 2024-03-17 08:08 | disposition home or self-care (01) ==
PROVIDERS: Emergency Provider Emergency Medicine
DX: S05.02XA Injury of conjunctiva and corneal abrasion without foreign body, left eye, initial encounter (principal); W50.0XXA Accidental hit or strike by another person, initial encounter; H57.12 Ocular pain, left eye; Y93.9 Activity, unspecified; Y92.9 Unspecified place or not applicable; Y99.9 Unspecified external cause status
CPT/HCPCS: 99283; 99284

== ENCOUNTER 2025-01-31 09:08 | Emergency (ER) | payer OTHER, SELFPAY ==
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
[2025-01-31 09:10] VITALS: BP 161/98; PULSE 69; RESP 16; TEMP 36.9; O2SAT 98; BMI 27.4
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
--- OUTSIDE RECORDS SUMMARY | 2025-01-31 10:30 | XMS_ITS | Clinical Summary ---
Author Organization [address] Address [address] [place] [address] Phone Care Team Providers Care Make Ready Worker Name Role Phone Curtis Tadeo MD Primary Care Provider Allergies No known active allergies Medications No known medications Encounters Date Type Department Care Team Description 12/28/2024 3:00 PM EDT Office Visit Adult Medicine [address] [phone] Curtis Tadeo MD Annual physical exam (Primary Dx); History of herpes simplex infection; Elevated blood pressure reading from Last 3 Months Family History Medical History Relation Name Comments Diabetes Father Relation Name Status Comments Brother Alive 1,healthy Father some drug issue Mother Alive healthy Sister Alive 2,healthy Social History Tobacco Use Types Packs/Day Years Used Date Smoking Tobacco: Never Smokeless Tobacco: Never Alcohol Use Standard Drinks/Week Comments Yes 0 (1 standard drink = 0.6 oz pur e alcohol) Sex and Gender Information Value Date Recorded Sex Assigned at Not on file Legal Sex Male 9:09 PM EST Gender Identity Not on file Sexual Orientation Not on file Obstetrics History Last Filed Vital Signs Vital Sign Reading Time Taken Comments Blood Pressure 132/80 12/28/2024 2:52 PM EDT Pulse 67 12/28/2024 2:52 PM EDT Temperature 36.6 C (97.9 F) 12/28/2024 2:52 PM EDT Respiratory Rate - - Oxygen Saturation - - Inhaled Oxygen Concentration - - Weight 77.6 kg (171 lb) 12/28/2024 2:52 PM EDT Height 170.2 cm (5' 7 ) 12/28/2024 2:52 PM EDT Body Mass Index 26.78 12/28/2024 2:52 PM EDT Plan of Treatment Upcoming Encounters Date Type Department Care Team (Late st Contact Info) Description 06/30/2025 1:30 PM EST Office Visit Adult Medicine [address] [phone] Curtis Tadeo MD [address] [place], [place] 01/03/2026 4:00 PM EDT Office Visit Adult [address] [phone] Curtis Tadeo MD [address] [place], [place] Health Maintenance Due Date Last Done Comments Influenza Vaccine (#1) 2025 COVID-19 Vaccine (2023-2 5 season) 2025 11/18/2020, 10/21/2020 Postponed from 02/08/2024 (Patient Refused) Depression Screening 06/09/2025 Postpon ed from 06/09/2024 (Patient Refused) HIV Screening 06/09/2025 Postponed from 07/04/2023 (Patient Refused) Hepatitis B Vaccines (1 of 3 - 19+ 3-dose series) 06/09/2025 Postponed from 09/08 (Patient Refused) Hepatitis C Screening 06/09/2025 Postpo sanket from 07/04/2023 (Patient Refused) Social Influencers of Health Screening 12/28/2025 12/28/2024 Cholesterol Screening (Lipid Panel) 12/31/2029 12/31/2024, 11/19/2023 DTaP,Tdap,and Td Vaccines (3 - Td or Tdap) 11/06/2033 11/07/2023, 11/13/2008 HIB Vaccines Aged Out No longer eligi ble based on patient's age to complete this topic HPV Vaccines Aged Out No longer eligi ble based on patient's age to complete this topic Hepatitis A Vaccines Aged Out No long er eligible based on patient's age to complete this topic IPV Vaccines Aged Out No longer eligi ble based on patient's age to complete this topic MMR Vaccines Aged Out No longer eligi ble based on patient's age to complete this topic Meningococcal ACWY Vaccine Aged Out N o longer eligible based on patient's age to complete this topic Meningococcal B Vaccine Aged Out No l onger eligible based on patient's age to complete this topic Pneumococcal Vaccine: Pediatrics (0 to 5 Years) and At-Risk Patients (6 to 49 Years) Aged Out No longer eligible b ased on patient's age to complete this topic RSV Immunization Patients Under 20 months Aged Out No longer eligible b ased on patient's age to complete this topic Varicella Vaccines Aged Out No longer eligible based on patient's age to complete this topic Procedures Procedure Name Priority Date/Time Associated Diagnosis Comments CBC WITH AUTO DIFFERENTIAL Routine 12/31/2024 12:41 PM EDT Annual physical exam CBC AND DIFFERENTIAL Routine 12/31/2024 12:41 PM EDT Annual physical exam COMPREHENSIVE METABOLIC PANEL Routine 12/31/2024 12:41 PM EDT Annual physical exam LIPID PANEL WITH REFLEX TO DIRECT LDL Routine 12/31/2024 12:41 PM EDT Annual physical exam THYROID STIMULATING HORMONE WITH REFLEX TO FREE T4 AND FREE T3 Routine 12/31/2024 12:41 PM EDT Annual physical exam from Last 3 Months Results * Thyroid stimulating hormone with reflex to free t4 and free t3 (12/31/2024 12:41 PM EDT) TSH 1.32 0.40 - 4.00 mcIU/mL LAB CHEMISTRY METHOD 12/31/2024 5:32 PM EDT [facility] Blood Venous blood specimen / Unknown Venipuncture / Unknown 12/31/2024 12:41 PM EDT 12/31/2024 12:41 PM EDT Curtis Tadeo MD LAB BLOOD ORDERABLES Final Result [facility] [address] [place] [address], [place] [phone] * (ABNORMAL) Lipid panel with reflex to direct LDL (12/31/2024 12:41 PM EDT) [facility] Cholesterol 173 0 - 200 mg/dL LAB CHEMISTRY METHOD 12/31/2024 4:52 PM EDT [facility] Triglycerides 66 0 - 150 mg/dL LAB CHEMISTRY METHOD 12/31/2024 4:52 PM EDT [facility] HDL 55 >=40 mg/dL LAB CHEMISTRY METHOD 12/31/2024 4:52 PM EDT [facility] LDL Calculated 105(H) 0 - 100 mg/dL LAB CHEMISTRY METHOD 12/31/2024 4:52 PM EDT [facility] VLDL Cholesterol Guy 13.2 mg/dL LAB CHEMISTRY METHOD 12/31/2024 4:52 PM EDT [facility] Non HDL Chol. (LDL+VLDL) 118 <145 mg/dL LAB CHEMISTRY METHOD 12/31/2024 4:52 PM EDT [facility] Chol/HDL Ratio 3.1 0.0 - 4.4 LAB CHEMISTRY METHOD 12/31/2024 4:52 PM T [facility] Blood Venous blood specimen / Unknown Venipuncture / Unknown 12/31/2024 12:41 PM EDT 12/31/2024 12:41 PM EDT us Curtis Tadeo MD LAB BLOOD ORDERABLES Final Result Performing Organization Address City/[facility]/ZIP Co de Phone Number [facility] [address] [place] [address], [place] [phone] * (ABNORMAL) CBC auto differential (12/31/2024 12:41 PM EDT) [facility] WBC 6.6 4.8 - 10.8 K/mcL LAB HEMETOLOGY METHOD 12/31/2024 2:09 PM [facility] RBC 4.90 4.50 - 5.50 M/mcL LAB [facility] Hemoglobin 13.8 13.5 - 17.5 g/dL LAB HEMETOLOGY METHOD 12/31/2024 2:09 PM [facility] Hematocrit 42.8 42.0 - 54.0 % LAB HEMETOLOGY METHOD 12/31/2024 2:09 PM [facility] MCV 87.7 79.0 - 98.0 FL LAB HEMETOLOGY METHOD 12/31/2024 2:09 PM [facility] MCH 28.3 27.0 - 32.0 pcg LAB HEMETOLOGY METHOD 12/31/2024 2:09 PM [facility] MCHC 32.2 32.0 - 37.0 g/dL LAB HEMETOLOGY METHOD 12/31/2024 2:09 PM [facility] RDW 13.5 11.0 - 15.0 % LAB HEMETOLOGY METHOD 12/31/2024 2:09 PM [facility] Platelets 236 130 - 400 K/mcL LAB HEMETOLOGY METHOD 12/31/2024 2:09 PM [facility] MPV 11.2(H) 7.0 - 11.0 FL LAB HEMETOLOGY METHOD 12/31/2024 2:09 PM [facility] NRBC 0.0 <1.0 % LAB HEMETOLOGY METHOD 12/31/2024 2:09 PM [facility] NRBC Absolute 0.00 <0.10 K/mcL LAB HEMETOLOGY METHOD 12/31/2024 2:09 PM [facility] Neutrophils Relative 58.5 % LAB HEMETOLOGY METHOD 12/31/2024 2:09 PM [facility] Lymphocytes Relative 27.6 % LAB HEMETOLOGY METHOD 12/31/2024 2:09 PM [facility] Monocytes Relative 11.6 % LAB HEMETOLOGY METHOD 12/31/2024 2:09 PM [facility] Eosinophils Relative 1.4 % LAB HEMETOLOGY METHOD 12/31/2024 2:09 PM [facility] Basophils Relative 0.6 % LAB HEMETOLOGY METHOD 12/31/2024 2:09 PM [facility] Immature Granulocytes Relative 0.3 % LAB HEMETOLOGY METHOD 12/31/2024 2:09 PM [facility] Neutrophils Absolute 3.87 1.50 - 7.00 K/mcL LAB HEMETOLOGY METHOD 12/31/2024 2:09 PM [facility] Lymphocytes Absolute 1.83 1.00 - 5.00 K/mcL LAB HEMETOLOGY METHOD 12/31/2024 2:09 PM [facility] Monocytes Absolute 0.77 0.20 - 1.00 K/mcL LAB HEMETOLOGY METHOD 12/31/2024 2:09 PM [facility] Eosinophils Absolute 0.09 0.00 - 0.50 K/mcL LAB HEMETOLOGY METHOD 12/31/2024 2:09 PM [facility] Basophils Absolute 0.04 0.00 - 0.20 K/mcL LAB HEMETOLOGY METHOD 12/31/2024 2:09 PM [facility] Immature Granulocytes Absolute 0.02 0.00 - 0.03 K/mcL LAB HEMETOLOGY METHOD 12/31/2024 2:09 PM EDT [facility] Blood Venous blood specimen / Unknown Venipuncture / Unknown 12/31/2024 12:41 PM EDT 12/31/2024 12:41 PM EDT Curtis Tadeo MD LAB BLOOD ORDERABLES Final Result [facility] [address] [place] [address], [place] [phone] * Comprehensive metabolic panel (12/31/2024 12:41 PM EDT) Sodium 136 133 - 145 mmol/L LAB CHEMISTRY METHOD 12/31/2024 4:52 PM [facility] Potassium 4.2 3.5 - 5.5 mmol/L LAB CHEMISTRY METHOD 12/31/2024 4:52 PM [facility] Chloride 106 96 - 110 mmol/L LAB CHEMISTRY METHOD 12/31/2024 4:52 PM [facility] CO2 26 21 - 32 mmol/L LAB CHEMISTRY METHOD 12/31/2024 4:52 PM [facility] Anion Gap 4 3 - 11 LAB CHEMISTRY METHOD 12/31/2024 4:52 PM [facility] Glucose 89 70 - 100 mg/dL LAB CHEMISTRY METHOD 12/31/2024 4:52 PM [facility] BUN 15 5 - 25 mg/dL LAB CHEMISTRY METHOD 12/31/2024 4:52 PM [facility] Creatinine 1.16 0.70 - 1.30 mg/dL LAB CHEMISTRY METHOD 12/31/2024 4:52 PM [facility] eGFR 81 >=60 mL/min/1. 73m2 LAB CHEMISTRY METHOD 12/31/2024 4:52 PM [facility] Comment:Calculation based on the Chronic Kidney Disease Epidemiology Collaboration (CKD-EPI) equation refit without adjustment for race. BUN/Creatinine Ratio 12.9 LAB CHEMISTRY METHOD 12/31/2024 4:52 PM T [facility] Calcium 9.2 8.5 - 10.5 mg/dL LAB CHEMISTRY METHOD 12/31/2024 4:52 PM [facility] AST (SGOT) 19 10 - 42 unit/L LAB CHEMISTRY METHOD 12/31/2024 4:52 PM [facility] ALT (SGPT) 26 10 - 60 unit/L LAB CHEMISTRY METHOD 12/31/2024 4:52 PM [facility] Alkaline Phosphatase 83 42 - 121 unit/L LAB CHEMISTRY METHOD 12/31/2024 4:52 PM [facility] Total Protein 7.4 6.0 - 8.0 g/dL LAB CHEMISTRY METHOD 12/31/2024 4:52 PM [facility] Albumin 4.2 3.2 - 5.0 g/dL LAB CHEMISTRY METHOD 12/31/2024 4:52 PM [facility] Total Bilirubin 0.3 0.0 - 1.4 mg/dL LAB CHEMISTRY METHOD 12/31/2024 4:52 PM [facility] Blood Venous blood specimen / Unknown Venipuncture / Unknown 12/31/2024 12:41 PM EDT 12/31/2024 12:41 PM EDT us Curtis Tadeo MD LAB BLOOD ORDERABLES Final Result [facility] [address] [place] [address], from Last [address] [address] PLAN Care Teams Make Ready Worker Relationship Specialty Start Date End Date Curtis Tadeo MD [address] [place] [address] PCP - General 06/17/23
[2025-01-31 11:29] VITALS: BP 147/90; PULSE 69; RESP 16; TEMP 36.9; O2SAT 98
== END 2025-01-31 11:39 | disposition home or self-care (01) ==
PROVIDERS: Emergency Provider Emergency Medicine
DX: S50.311A Abrasion of right elbow, initial encounter (principal); S50.312A Abrasion of left elbow, initial encounter; R10.2 Pelvic and perineal pain; M25.512 Pain in left shoulder; M79.672 Pain in left foot; M25.552 Pain in left hip; V23.49XA Other motorcycle driver injured in collision with car, pick-up truck or van in traffic accident, initial encounter; Y93.9 Activity, unspecified; Y92.410 Unspecified street and highway as the place of occurrence of the external cause; Y99.8 Other external cause status
CPT/HCPCS: 29105; 73030; 73502; 73630; 99283; 99284

== ENCOUNTER → 2025-01-31 09:53 | Outpatient (BNV) | payer OTHER, SELFPAY | PROVIDERS: Emergency Provider Emergency Medicine; Visit Provider Radiology Diagnostic Radiology | DX: M25.552 Pain in left hip (principal); M25.512 Pain in left shoulder; M79.672 Pain in left foot; V89.2XXA Person injured in unspecified motor-vehicle accident, traffic, initial encounter | CPT/HCPCS: 73030; 73502; 73630 ==

== ENCOUNTER 2025-02-23 12:56 | Outpatient (AMB) | payer OTHER, SELFPAY ==
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
[2025-02-23 13:10] VITALS: BMI 27.4
== END 2025-02-23 13:48 | disposition home or self-care (01) ==
LOC: HO.HOS 12:56
PROVIDERS: Visit Provider Physician Assistant
DX: S43.102A Unspecified dislocation of left acromioclavicular joint, initial encounter (principal)
CPT/HCPCS: 99203; G2211